=== PATIENT | male | born 1970 | race Two or more races ===

== ENCOUNTER 2021-10-06 15:27 | Emergency (ER) | payer MEDICAID, OTHER ==
[~2021-10-06] VITALS: Ht 182.9 cm; Wt 77.1 kg
[2021-10-06] MEDS ORDERED: ACETAMINOPHEN 325 MG TAB PO ONE (15:45)
[2021-10-06] MEDS ORDERED: AZIT1POW PO (19:23)
[2021-10-06] MEDS ORDERED: TRAM-297 PO (19:23)
[2021-10-06 19:48] VITALS: BP 133/85
== END 2021-10-06 19:49 | disposition home or self-care (01) ==
LOC: ER 15:27
DX: B34.9 Viral infection, unspecified (principal); M79.10 Myalgia, unspecified site; J02.9 Acute pharyngitis, unspecified; F17.210 Nicotine dependence, cigarettes, uncomplicated; Z79.2 Long term (current) use of antibiotics; Z79.899 Other long term (current) drug therapy; Z20.822 Contact with and (suspected) exposure to COVID-19
CPT/HCPCS: 36415